=== PATIENT | male | born 1955 | race Hispanic/Latino ===

== ENCOUNTER 2018-12-08 05:30 | Day surgery (SDC) | payer MEDICARE, OTHER ==
[2018-12-05 11:39] VITALS: BP 180/77
[2018-12-05 11:40] LABS: BASOPHILS % (AUTO) 1.3 % (0.0-5.0); EOSINOPHILS % (AUTO) 6.7 % (0.0-8.0); HEMATOCRIT 31.3 % (42-54); LYMPHOCYTES % (AUTO) 23.6 % (21.0-51.0); MEAN CORPUSCULAR HGB CONC 34.6 g/dL (32.0-36.0); MEAN CORPUSCULAR VOLUME 95.4 fL (79-99); MONOCYTES % (AUTO) 11.4 % (3.0-13.0); PLATELET COUNT (AUTO) 177 K/uL (130-400); RED BLOOD CELL COUNT(AUTO) 3.28 MIL/uL (4.50-6.20); RED CELL DISTRIBUTION WIDTH 14.6 % (11.0-15.5); WHITE BLOOD COUNT (AUTO) 4.9 K/uL (4.8-10.8)
[2018-12-05 11:48] LABS: CREATININE 6.5 mg/dL (0.5-1.5); POTASSIUM 5.1 mmol/L (3.5-5.1)
[2018-12-05 11:55] LABS: INR 0.94 (0.85-1.15); PARTIAL THROMBOPLASTIN TIME 29.8 SEC (26.3-35.5); PROTHROMBIN TIME 9.9 SEC (9.6-11.6)
[~2018-12-08] VITALS: Ht 172.7 cm; Wt 74.1 kg
[2018-12-08] VITALS (10 sets, daily range): BP systolic 131–156; BP diastolic 51–74
[~2018-12-08 05:30] MED LIST: AMLO10TA7 PO; ASPI81TA40 PO; CALC667C10 PO; FAMO40TA7 PO; FOLI1TAB85 PO; GLIP10TA9 PO; LOSA100T58 PO; PRAV80TA21 PO; SEVE800T27 PO
[2018-12-08] MEDS ORDERED: IOHEXOL-350 75 ML VIAL IV ONE (07:07)
[2018-12-08] MEDS ORDERED: IOHEXOL-350 50ML VIAL IV ONE (07:07)
[2018-12-08] MEDS ORDERED: LIDOCAINE HCL 2% 20ML ONE (07:07)
[2018-12-08] MEDS ORDERED: INSU100I21 SQ (07:09)
[2018-12-08] MEDS ORDERED: SODIUM CHLORIDE 0.9% 1000ML 1,000 ML IV ONE (07:15)
[2018-12-08] MEDS ORDERED: HYDRALAZINE HCL 20 MG/ML VIAL ONE ×2 (07:49→07:56)
[2018-12-08] MEDS ORDERED: GLUCAGON 1MG KIT 1 MG ML IM PRN (08:15)
[2018-12-08] MEDS ORDERED: DEXTROSE 50%-WATER 50 ML DISP.SYRIN IV PRN (08:15)
== END 2018-12-08 12:30 | disposition home or self-care (01) ==
LOC: DAH 05:30
PROVIDERS: ATTEND Internal Medicine Cardiovascular Disease
DX: I25.10 Atherosclerotic heart disease of native coronary artery without angina pectoris (principal); I44.30 Unspecified atrioventricular block; I12.9 Hypertensive chronic kidney disease with stage 1 through stage 4 chronic kidney disease, or unspecified chronic kidney disease; E11.22 Type 2 diabetes mellitus with diabetic chronic kidney disease; Z99.2 Dependence on renal dialysis; E78.5 Hyperlipidemia, unspecified; I73.9 Peripheral vascular disease, unspecified; Z79.899 Other long term (current) drug therapy; I12.0 Hypertensive chronic kidney disease with stage 5 chronic kidney disease or end stage renal disease; N18.6 End stage renal disease; E11.51 Type 2 diabetes mellitus with diabetic peripheral angiopathy without gangrene; E11.21 Type 2 diabetes mellitus with diabetic nephropathy; Z98.890 Other specified postprocedural states; Z79.01 Long term (current) use of anticoagulants; R07.9 Chest pain, unspecified
CPT/HCPCS: 71045; 75625; 80048; 82948; 85025; 85610; 85730; 93005; 93458; A4606; C1760; C1894; J0360 ×2; J1644; J3490; J7030; Q9967 ×2; 75630

== ENCOUNTER → 2020-08-10 | Outpatient (CLI) | payer MEDICARE ==
[~2020-08-10] VITALS: Ht 172.7 cm; Wt 68.8 kg
[~2020-08-10] MED LIST changes: +AMLO-258 PO; -AMLO10TA7 PO; +INSU100I21 SQ; +MONT10TA96 PO; +PRAV40TA3 PO
[2020-08-10 11:58] LABS: BASOPHILS % (AUTO) 0.6 % (0.0-5.0); EOSINOPHILS % (AUTO) 4.3 % (0.0-8.0); HEMATOCRIT 34.2 % (42-54); LYMPHOCYTES % (AUTO) 20.9 % (21.0-51.0); MEAN CORPUSCULAR HEMOGLOBIN 30.4 pg (27.0-33.0); MEAN CORPUSCULAR HGB CONC 32.5 g/dL (32.0-36.0); MEAN CORPUSCULAR VOLUME 93.7 fL (79-99); MONOCYTES % (AUTO) 7.6 % (3.0-13.0); NEUTROPHILS % (AUTO) 66.2 % (40.0-77.0); PLATELET COUNT (AUTO) 130 K/uL (130-400); RED BLOOD CELL COUNT(AUTO) 3.65 MIL/uL (4.50-6.20); RED CELL DISTRIBUTION WIDTH 13.2 % (11.0-15.5); WHITE BLOOD COUNT (AUTO) 4.9 K/uL (4.8-10.8)
[2020-08-10 12:06] LABS: CREATININE 4.6 mg/dL (0.5-1.5); POTASSIUM 3.9 mmol/L (3.5-5.1)
[2020-08-10 12:23] LABS: INR 0.97 (0.85-1.15); PROTHROMBIN TIME 10.4 SEC (9.6-11.6)
[2020-08-15 09:51] VITALS: BP 139/53
== END | disposition home or self-care (01) ==
LOC: EDSTATUS 09:00 → DAH 10:00
PROVIDERS: ATTEND Internal Medicine Cardiovascular Disease
DX: Z01.810 Encounter for preprocedural cardiovascular examination (principal); I44.1 Atrioventricular block, second degree; I25.10 Atherosclerotic heart disease of native coronary artery without angina pectoris; I12.0 Hypertensive chronic kidney disease with stage 5 chronic kidney disease or end stage renal disease; N18.6 End stage renal disease
CPT/HCPCS: 36415; 80048; 85025; 85610; 85730

== ENCOUNTER 2020-08-17 08:37 | Inpatient (IN) | payer MEDICARE ==
[~2020-08-17 08:37] MED LIST changes: -AMLO-258 PO; -FAMO40TA7 PO; -FOLI1TAB85 PO; +MONT-39 PO; -MONT10TA96 PO; -PRAV80TA21 PO
[2020-08-17] MEDS ORDERED: ACETAMINOPHEN 500 MG TABLET ONE (08:50)
[2020-08-17 08:59] LABS: BASOPHILS % (AUTO) 0.1 % (0.0-5.0); EOSINOPHILS % (AUTO) 1.5 % (0.0-8.0); HEMATOCRIT 29.7 % (42-54); LYMPHOCYTES % (AUTO) 5.3 % (21.0-51.0); MEAN CORPUSCULAR HEMOGLOBIN 30.1 pg (27.0-33.0); MEAN CORPUSCULAR VOLUME 88.4 fL (79-99); MONOCYTES % (AUTO) 3.2 % (3.0-13.0); NEUTROPHILS % (AUTO) 89.5 % (40.0-77.0); PLATELET COUNT (AUTO) 103 K/uL (130-400); RED BLOOD CELL COUNT(AUTO) 3.36 MIL/uL (4.50-6.20); RED CELL DISTRIBUTION WIDTH 13.3 % (11.0-15.5); WHITE BLOOD COUNT (AUTO) 9.2 K/uL (4.8-10.8)
[2020-08-17 09:12] LABS: CREATININE 5.9 mg/dL (0.5-1.5); POTASSIUM 3.7 mmol/L (3.5-5.1)
[2020-08-17 09:15] LABS: INR 1.07 (0.85-1.15); PROTHROMBIN TIME 11.4 SEC (9.6-11.6)
[2020-08-17 09:16] LABS: PARTIAL THROMBOPLASTIN TIME 45.6 SEC (26.3-35.5)
[2020-08-17 09:27] LABS: ALBUMIN 2.9 g/dL (3.5-5.0); BILIRUBIN,TOTAL 0.7 mg/dL (0.2-1.0); TOTAL PROTEIN, SERUM 7.2 g/dL (6.0-8.3)
[2020-08-17] MEDS ORDERED: ALBUTEROL INHALER 90MCG/INH IH ONE (09:33)
[2020-08-17] MEDS ORDERED: ENOXAPARIN SODIUM 60 MG/0.6 ML SQ ONE (09:34)
[2020-08-17] MEDS ORDERED: AZITHROMYCIN 500MG+NS 250ML 250 ML IV ONE (09:35)
[2020-08-17] MEDS ORDERED: DEXAMETHASONE SOD PHOSPHATE 10MG/ML 1ML VIAL ONE (09:35)
[2020-08-17] MEDS: PHARMACY COMMUNICATION MISC SCH ×2 (14:15→21:00)
[2020-08-17] MEDS ORDERED: HEPARIN 5,000 UNIT VIAL ONE (14:59)
[2020-08-17] MEDS ORDERED: PHARMACY COMMUNICATION MISC SCH (22:15)
[2020-08-17] MEDS ORDERED: ASPIRIN 81MG CHEW TAB ONE (23:40)
[2020-08-18] MEDS ORDERED: INSULIN HUMULIN R 100 UNIT/ML 3ML ONE (02:18)
[2020-08-18 02:40] VITALS: BP 150/77
[2020-08-18 03:40] VITALS: BP 106/66
[2020-08-18 06:14] LABS: BASOPHILS % (AUTO) 0.1 % (0.0-5.0); HEMATOCRIT 35.5 % (42-54); LYMPHOCYTES % (AUTO) 6.1 % (21.0-51.0); MEAN CORPUSCULAR HEMOGLOBIN 29.9 pg (27.0-33.0); MEAN CORPUSCULAR HGB CONC 33.2 g/dL (32.0-36.0); MEAN CORPUSCULAR VOLUME 89.9 fL (79-99); MONOCYTES % (AUTO) 3.8 % (3.0-13.0); NEUTROPHILS % (AUTO) 89.7 % (40.0-77.0); PLATELET COUNT (AUTO) 135 K/uL (130-400); RED BLOOD CELL COUNT(AUTO) 3.95 MIL/uL (4.50-6.20); RED CELL DISTRIBUTION WIDTH 13.3 % (11.0-15.5); WHITE BLOOD COUNT (AUTO) 9.1 K/uL (4.8-10.8)
[2020-08-18 06:24] LABS: ALBUMIN 2.5 g/dL (3.5-5.0); BILIRUBIN,TOTAL 0.5 mg/dL (0.2-1.0); CREATININE 5.8 mg/dL (0.5-1.5); POTASSIUM 3.3 mmol/L (3.5-5.1); TOTAL PROTEIN, SERUM 7.3 g/dL (6.0-8.3)
[2020-08-18] MEDS: INSULIN HUMULIN R 100 UNIT/ML 3ML SQ SCH ×4 (06:46→21:55)
[2020-08-18] MEDS: HEPARIN 5,000 UNIT VIAL SQ SCH ×3 (06:58→22:16)
[2020-08-18 07:13] LABS: CRP QUANTITATIVE 390.6 mg/L (0.00-9.0)
[2020-08-18 08:58] VITALS: BP 151/76
[2020-08-18] MEDS: ASPIRIN 81MG CHEW TAB PO SCH (09:00)
[2020-08-18] MEDS: DEXAMETHASONE SOD PHOSPHATE 4 MG/ML 1ML VIAL IVP SCH (09:02)
[2020-08-18 12:04] VITALS: BP 154/66
[2020-08-18 16:00] VITALS: BP 144/77
[2020-08-18] MEDS ORDERED: ERGOCALCIFEROL (VITAMIN D2) 50,000 UNIT CAPSULE PO ONE (17:30)
[2020-08-18] MEDS ORDERED: PHARMACY COMMUNICATION MISC SCH (17:30)
[2020-08-18 20:00] VITALS: BP_SYST 137; BP_SYST 144; BP_DIAS 77; BP_DIAS 80
[2020-08-18] MEDS ORDERED: COMPOUND IV REFRIGERATED 1 EACH MISC ONE (20:08)
[2020-08-18] MEDS: PHARMACY COMMUNICATION MISC SCH (22:15)
[2020-08-19] VITALS (7 sets, daily range): BP systolic 114–160; BP diastolic 56–77
[2020-08-19 05:38] LABS: BASOPHILS % (AUTO) 0.1 % (0.0-5.0); HEMATOCRIT 33.8 % (42-54); LYMPHOCYTES % (AUTO) 4.6 % (21.0-51.0); MEAN CORPUSCULAR HEMOGLOBIN 30.1 pg (27.0-33.0); MEAN CORPUSCULAR HGB CONC 33.7 g/dL (32.0-36.0); MEAN CORPUSCULAR VOLUME 89.2 fL (79-99); MONOCYTES % (AUTO) 2.4 % (3.0-13.0); NEUTROPHILS % (AUTO) 92.3 % (40.0-77.0); PLATELET COUNT (AUTO) 210 K/uL (130-400); RED BLOOD CELL COUNT(AUTO) 3.79 MIL/uL (4.50-6.20); RED CELL DISTRIBUTION WIDTH 13.7 % (11.0-15.5); WHITE BLOOD COUNT (AUTO) 12.7 K/uL (4.8-10.8)
[2020-08-19 05:50] LABS: ALBUMIN 2.5 g/dL (3.5-5.0); BILIRUBIN,TOTAL 0.5 mg/dL (0.2-1.0); CREATININE 7.6 mg/dL (0.5-1.5); POTASSIUM 3.7 mmol/L (3.5-5.1); TOTAL PROTEIN, SERUM 7.1 g/dL (6.0-8.3)
[2020-08-19] MEDS: HEPARIN 5,000 UNIT VIAL SQ SCH ×3 (06:16→21:04)
[2020-08-19] MEDS: PHARMACY COMMUNICATION MISC SCH (06:17)
[2020-08-19] MEDS: INSULIN HUMULIN R 100 UNIT/ML 3ML SQ SCH ×4 (07:30→21:03)
[2020-08-19] MEDS ORDERED: VANCOMYCIN PROTOCOL PER PHARMACY IV PRN (08:45)
[2020-08-19] MEDS ORDERED: VANCOMYCIN 1G/250ML KIT 250 ML IV SCH (08:45)
[2020-08-19] MEDS ORDERED: ACETAMINOPHEN 325 MG TAB PO PRN (08:45)
[2020-08-19] MEDS: ZINC SULFATE 220 CAPSULE PO SCH (08:53)
[2020-08-19] MEDS: ASCORBIC ACID 500 MG TAB PO SCH (08:54)
[2020-08-19] MEDS: ASPIRIN 81MG CHEW TAB PO SCH (08:54)
[2020-08-19] MEDS: AMLODIPINE 5 MG TAB PO SCH (09:44)
[2020-08-19] MEDS: ZOSYN 3.375GM+NS 50ML 50 ML IV SCH ×2 (09:44→21:04)
[2020-08-19] MEDS: METOPROLOL TARTRATE 25 MG TAB PO SCH ×2 (09:44→21:04)
[2020-08-19] MEDS: DEXAMETHASONE SOD PHOSPHATE 4 MG/ML 1ML VIAL IVP SCH (10:29)
[2020-08-19] MEDS: DOXYCYCLINE HYCLATE 100 MG TABLET PO SCH ×2 (14:59→21:04)
[2020-08-19] MEDS: ATORVASTATIN 20 MG TABLET PO SCH (21:04)
[2020-08-19] MEDS: INSULIN GLARGINE 100 UNITS/ML 10 ML VIAL SQ SCH (21:05)
[2020-08-20 03:43] VITALS: BP 136/60
[2020-08-20 04:44] LABS: ABG BASE EXCESS -3.3 mmol/L (-2.0-3.0); ABG HCO3 19.6 mmol/L (21.0-28.0); ABG OXYGEN SATURATION 85.7 % (95.0-99.0); ABG PCO2 30 mmHg (35-48)
[2020-08-20 04:53] LABS: BASOPHILS % (AUTO) 0.1 % (0.0-5.0); EOSINOPHILS % (AUTO) 1.7 % (0.0-8.0); HEMATOCRIT 30.2 % (42-54); LYMPHOCYTES % (AUTO) 4.2 % (21.0-51.0); MEAN CORPUSCULAR HEMOGLOBIN 30.1 pg (27.0-33.0); MEAN CORPUSCULAR HGB CONC 34.1 g/dL (32.0-36.0); MEAN CORPUSCULAR VOLUME 88.3 fL (79-99); MONOCYTES % (AUTO) 3.5 % (3.0-13.0); NEUTROPHILS % (AUTO) 90.1 % (40.0-77.0); PLATELET COUNT (AUTO) 190 K/uL (130-400); RED BLOOD CELL COUNT(AUTO) 3.42 MIL/uL (4.50-6.20); RED CELL DISTRIBUTION WIDTH 13.5 % (11.0-15.5); WHITE BLOOD COUNT (AUTO) 9.4 K/uL (4.8-10.8)
[2020-08-20 05:10] LABS: ALBUMIN 2.4 g/dL (3.5-5.0); BILIRUBIN,TOTAL 0.5 mg/dL (0.2-1.0); CRP QUANTITATIVE 164.9 mg/L (0.00-9.0); POTASSIUM 3.5 mmol/L (3.5-5.1); TOTAL PROTEIN, SERUM 6.6 g/dL (6.0-8.3)
[2020-08-20 06:01] LABS: CREATININE 9.3 mg/dL (0.5-1.5)
[2020-08-20] MEDS: HEPARIN 5,000 UNIT VIAL SQ SCH ×3 (06:19→20:29)
[2020-08-20] MEDS: INSULIN HUMULIN R 100 UNIT/ML 3ML SQ SCH ×8 (06:21→20:29)
[2020-08-20 07:43] VITALS: BP 127/67
[2020-08-20] MEDS: ASCORBIC ACID 500 MG TAB PO SCH (09:38)
[2020-08-20] MEDS: METOPROLOL TARTRATE 25 MG TAB PO SCH ×2 (09:38→19:50)
[2020-08-20] MEDS: ZINC SULFATE 220 CAPSULE PO SCH (09:38)
[2020-08-20] MEDS: ASPIRIN 81MG CHEW TAB PO SCH (09:38)
[2020-08-20] MEDS: DEXAMETHASONE SOD PHOSPHATE 4 MG/ML 1ML VIAL IVP SCH (09:39)
[2020-08-20] MEDS: DOXYCYCLINE HYCLATE 100 MG TABLET PO SCH ×2 (09:39→20:28)
[2020-08-20] MEDS: ZOSYN 3.375GM+NS 50ML 50 ML IV SCH ×2 (09:40→20:28)
[2020-08-20] MEDS: AMLODIPINE 5 MG TAB PO SCH (09:40)
[2020-08-20 11:25] VITALS: BP 112/56
[2020-08-20 15:12] VITALS: BP 131/81
[2020-08-20 17:46] LABS: BASOPHILS % (AUTO) 0.1 % (0.0-5.0); HEMATOCRIT 30.6 % (42-54); LYMPHOCYTES % (AUTO) 4.1 % (21.0-51.0); MEAN CORPUSCULAR HEMOGLOBIN 30.4 pg (27.0-33.0); MEAN CORPUSCULAR HGB CONC 34.6 g/dL (32.0-36.0); MEAN CORPUSCULAR VOLUME 87.7 fL (79-99); MONOCYTES % (AUTO) 3.1 % (3.0-13.0); NEUTROPHILS % (AUTO) 92.3 % (40.0-77.0); PLATELET COUNT (AUTO) 160 K/uL (130-400); RED BLOOD CELL COUNT(AUTO) 3.49 MIL/uL (4.50-6.20); RED CELL DISTRIBUTION WIDTH 13.3 % (11.0-15.5); WHITE BLOOD COUNT (AUTO) 11.1 K/uL (4.8-10.8)
[2020-08-20 19:00] VITALS: BP 107/76
[2020-08-20] MEDS: INSULIN GLARGINE 100 UNITS/ML 10 ML VIAL SQ SCH (20:26)
[2020-08-20] MEDS: ATORVASTATIN 20 MG TABLET PO SCH (20:27)
[2020-08-20 23:00] VITALS: BP 103/64
[2020-08-21 03:00] VITALS: BP 133/65
[2020-08-21 05:15] LABS: BASOPHILS % (AUTO) 0.1 % (0.0-5.0); HEMATOCRIT 30.7 % (42-54); LYMPHOCYTES % (AUTO) 7.1 % (21.0-51.0); MEAN CORPUSCULAR HEMOGLOBIN 29.8 pg (27.0-33.0); MEAN CORPUSCULAR HGB CONC 33.6 g/dL (32.0-36.0); MEAN CORPUSCULAR VOLUME 88.7 fL (79-99); MONOCYTES % (AUTO) 5.5 % (3.0-13.0); NEUTROPHILS % (AUTO) 86.5 % (40.0-77.0); PLATELET COUNT (AUTO) 171 K/uL (130-400); RED BLOOD CELL COUNT(AUTO) 3.46 MIL/uL (4.50-6.20); RED CELL DISTRIBUTION WIDTH 13.3 % (11.0-15.5)
[2020-08-21 05:49] LABS: ALBUMIN 2.2 g/dL (3.5-5.0); BILIRUBIN,TOTAL 0.5 mg/dL (0.2-1.0); CREATININE 7.1 mg/dL (0.5-1.5); POTASSIUM 3.3 mmol/L (3.5-5.1); TOTAL PROTEIN, SERUM 6.6 g/dL (6.0-8.3)
[2020-08-21] MEDS: HEPARIN 5,000 UNIT VIAL SQ SCH ×3 (05:54→23:38)
[2020-08-21] MEDS: INSULIN HUMULIN R 100 UNIT/ML 3ML SQ SCH ×7 (06:00→23:40)
[2020-08-21 08:00] VITALS: BP 132/70
[2020-08-21] MEDS: DOXYCYCLINE HYCLATE 100 MG TABLET PO SCH ×2 (08:11→23:34)
[2020-08-21] MEDS: ZINC SULFATE 220 CAPSULE PO SCH (08:11)
[2020-08-21] MEDS: METOPROLOL TARTRATE 25 MG TAB PO SCH ×2 (08:11→23:34)
[2020-08-21] MEDS: ASPIRIN 81MG CHEW TAB PO SCH (08:12)
[2020-08-21] MEDS: AMLODIPINE 5 MG TAB PO SCH (08:12)
[2020-08-21] MEDS: DEXAMETHASONE SOD PHOSPHATE 4 MG/ML 1ML VIAL IVP SCH (08:12)
[2020-08-21] MEDS: ASCORBIC ACID 500 MG TAB PO SCH (08:12)
[2020-08-21] MEDS: ZOSYN 3.375GM+NS 50ML 50 ML IV SCH ×2 (09:25→23:34)
[2020-08-21] MEDS ORDERED: LOPERAMIDE HCL 2 MG CAP PO PRN (10:30)
[2020-08-21] MEDS ORDERED: LOPERAMIDE HCL 2 MG CAP PO SCH (10:30)
[2020-08-21 12:00] VITALS: BP 113/82
[2020-08-21 16:00] VITALS: BP 120/66
[2020-08-21 20:16] VITALS: BP 138/88
[2020-08-21] MEDS: ATORVASTATIN 20 MG TABLET PO SCH (23:34)
[2020-08-21] MEDS: INSULIN GLARGINE 100 UNITS/ML 10 ML VIAL SQ SCH (23:39)
[2020-08-22 00:16] VITALS: BP 119/72
[2020-08-22 04:16] VITALS: BP 120/62
[2020-08-22 05:30] LABS: BASOPHILS % (AUTO) 0.1 % (0.0-5.0); HEMATOCRIT 35.5 % (42-54); LYMPHOCYTES % (AUTO) 5.4 % (21.0-51.0); MEAN CORPUSCULAR HGB CONC 33.5 g/dL (32.0-36.0); MEAN CORPUSCULAR VOLUME 89.4 fL (79-99); MONOCYTES % (AUTO) 4.5 % (3.0-13.0); NEUTROPHILS % (AUTO) 89.6 % (40.0-77.0); PLATELET COUNT (AUTO) 241 K/uL (130-400); RED BLOOD CELL COUNT(AUTO) 3.97 MIL/uL (4.50-6.20); RED CELL DISTRIBUTION WIDTH 13.2 % (11.0-15.5); WHITE BLOOD COUNT (AUTO) 13.5 K/uL (4.8-10.8)
[2020-08-22] MEDS: HEPARIN 5,000 UNIT VIAL SQ SCH ×2 (06:34→15:58)
[2020-08-22] MEDS: INSULIN HUMULIN R 100 UNIT/ML 3ML SQ SCH ×3 (06:36→17:09)
[2020-08-22 07:00] VITALS: BP 144/77
[2020-08-22] MEDS: ZOSYN 3.375GM+NS 50ML 50 ML IV SCH (08:32)
[2020-08-22] MEDS: ZINC SULFATE 220 CAPSULE PO SCH (08:35)
[2020-08-22] MEDS: DOXYCYCLINE HYCLATE 100 MG TABLET PO SCH (08:35)
[2020-08-22] MEDS: AMLODIPINE 5 MG TAB PO SCH (08:35)
[2020-08-22] MEDS: DEXAMETHASONE SOD PHOSPHATE 4 MG/ML 1ML VIAL IVP SCH (08:35)
[2020-08-22] MEDS: METOPROLOL TARTRATE 25 MG TAB PO SCH (08:35)
[2020-08-22] MEDS: ASCORBIC ACID 500 MG TAB PO SCH (08:35)
[2020-08-22] MEDS: ASPIRIN 81MG CHEW TAB PO SCH (08:36)
[2020-08-22 11:00] VITALS: BP 138/85
[2020-08-22 15:00] VITALS: BP 124/76
[2020-10-11] MEDS ORDERED: GLIP10TA9 PO (10:56)
[2020-10-11] MEDS ORDERED: METO-408 PO (10:56)
[2020-10-11] MEDS ORDERED: FAMO40TA7 PO (10:56)
[2020-10-11] MEDS ORDERED: AMOX500C2 PO (10:56)
[2020-10-11] MEDS ORDERED: PRAV80TA21 PO (10:56)
[2020-10-11] MEDS ORDERED: CLAR-44 PO (10:56)
[2020-10-11] MEDS ORDERED: OMEP20TA25 PO (10:56)
[2020-10-11] MEDS ORDERED: LEVO150C4 PO (10:57)
[2020-10-11] MEDS ORDERED: INSU100I21 SQ (10:57)
[2020-10-11] MEDS ORDERED: FOLI0.8T2 PO (10:57)
[2021-02-26] MEDS ORDERED: METO50TA18 PO (16:44)
[2021-02-26] MEDS ORDERED: DIPH1TAB24 PO (16:49)
[2021-02-26] MEDS ORDERED: MONT-39 PO (16:50)
[2021-02-26] MEDS ORDERED: AMLO-257 PO (16:57)
[2021-03-01] MEDS ORDERED: AMLO-258 PO (14:49)
== END 2020-08-22 18:30 | DRG 177 ==
LOC: EDH 08:37 → EDHIP 11:44 → 2AH 08-18 00:47
PROVIDERS: ADMIT Internal Medicine; ATTEND Internal Medicine
PROC: 5A1D70Z Performance of Urinary Filtration, Intermittent, Less than 6 Hours Per Day (ICD-10-PCS; 2020-08-17)
PROC: XW13325 Transfusion of Convalescent Plasma (Nonautologous) into Peripheral Vein, Percutaneous Approach, New Technology Group 5 (ICD-10-PCS; principal; 2020-08-19)
PROC: 5A1D70Z Performance of Urinary Filtration, Intermittent, Less than 6 Hours Per Day (ICD-10-PCS; 2020-08-20)
DX: U07.1 COVID-19 (principal); J15.6 Pneumonia due to other Gram-negative bacteria; N18.6 End stage renal disease; J96.01 Acute respiratory failure with hypoxia; J12.82 Pneumonia due to coronavirus disease 2019; J44.0 Chronic obstructive pulmonary disease with (acute) lower respiratory infection; I12.0 Hypertensive chronic kidney disease with stage 5 chronic kidney disease or end stage renal disease; I24.8 Other forms of acute ischemic heart disease; E78.5 Hyperlipidemia, unspecified; I70.0 Atherosclerosis of aorta; I25.10 Atherosclerotic heart disease of native coronary artery without angina pectoris; R53.81 Other malaise; E11.22 Type 2 diabetes mellitus with diabetic chronic kidney disease; Z99.2 Dependence on renal dialysis; Z87.891 Personal history of nicotine dependence; Z83.3 Family history of diabetes mellitus; Z82.49 Family history of ischemic heart disease and other diseases of the circulatory system
CPT/HCPCS: 36415; 36430; 36600; 71045; 80053; 82270; 82550; 82728; 82803; 82948; 83605; 83615; 84145; 84484; 85025; 85378; 85610; 85730; 86140; 86850; 86900; 86901; 86927; 87040; 87046; 87324; 87426; 87493; 87804; 90935; 93005; G0378; J0456; J1100; J1644; J1650; J1815; J2543; J3370

== ENCOUNTER → 2020-10-10 | Outpatient (CLI) | payer MEDICARE ==
[~2020-10-10] VITALS: Ht 172.7 cm; Wt 68.0 kg
[~2020-10-10] MED LIST changes: +AMOX500C2 PO; +CEFAZOLIN SODIUM 1 GM VIAL IVP SCH; +CLAR-44 PO; +FAMO40TA7 PO; +FOLI0.8T2 PO; +LEVO150C4 PO; +METO-408 PO; -MONT-39 PO; +MONT10TA32 PO; +OMEP20TA25 PO; +PRAV80TA21 PO
[2020-10-10 11:08] LABS: BASOPHILS % (AUTO) 1.3 % (0.0-5.0); LYMPHOCYTES % (AUTO) 15.7 % (21.0-51.0); MEAN CORPUSCULAR HGB CONC 32.8 g/dL (32.0-36.0); MEAN CORPUSCULAR VOLUME 94.8 fL (79-99); MONOCYTES % (AUTO) 6.9 % (3.0-13.0); NEUTROPHILS % (AUTO) 67.8 % (40.0-77.0); PLATELET COUNT (AUTO) 209 K/uL (130-400); RED BLOOD CELL COUNT(AUTO) 3.06 MIL/uL (4.50-6.20); RED CELL DISTRIBUTION WIDTH 15.5 % (11.0-15.5); WHITE BLOOD COUNT (AUTO) 6.4 K/uL (4.8-10.8)
[2020-10-10 11:16] LABS: CREATININE 7.2 mg/dL (0.5-1.5); POTASSIUM 4.9 mmol/L (3.5-5.1)
[2020-10-10 12:30] LABS: PROTHROMBIN TIME 10.9 SEC (9.6-11.6)
[2020-10-10 12:31] LABS: PARTIAL THROMBOPLASTIN TIME 30.4 SEC (26.3-35.5)
[2020-10-11 09:21] VITALS: BP 177/62
== END ==
LOC: EDSTATUS 10:00 → DAH 10:00
PROVIDERS: ATTEND Internal Medicine Cardiovascular Disease
DX: Z01.818 Encounter for other preprocedural examination (principal); I44.1 Atrioventricular block, second degree; Z79.01 Long term (current) use of anticoagulants
CPT/HCPCS: 36415; 80048; 85025; 85610; 85730

== ENCOUNTER 2020-11-07 05:43 | Observation (INO) | payer MEDICARE ==
[2020-11-03 14:25] LABS: BASOPHILS % (AUTO) 1.1 % (0.0-5.0); HEMATOCRIT 29.3 % (42-54); LYMPHOCYTES % (AUTO) 14.9 % (21.0-51.0); MEAN CORPUSCULAR HEMOGLOBIN 31.3 pg (27.0-33.0); MEAN CORPUSCULAR HGB CONC 33.4 g/dL (32.0-36.0); MEAN CORPUSCULAR VOLUME 93.6 fL (79-99); MONOCYTES % (AUTO) 7.9 % (3.0-13.0); NEUTROPHILS % (AUTO) 71.8 % (40.0-77.0); PLATELET COUNT (AUTO) 182 K/uL (130-400); RED BLOOD CELL COUNT(AUTO) 3.13 MIL/uL (4.50-6.20); RED CELL DISTRIBUTION WIDTH 16.6 % (11.0-15.5); WHITE BLOOD COUNT (AUTO) 6.3 K/uL (4.8-10.8)
[2020-11-03 14:41] LABS: INR 1.05 (0.85-1.15); POTASSIUM 4.7 mmol/L (3.5-5.1); PROTHROMBIN TIME 11.4 SEC (9.6-11.6)
[2020-11-04 10:42] VITALS: BP 157/58
[2020-11-07] VITALS (11 sets, daily range): BP systolic 96–143; BP diastolic 36–63
[~2020-11-07] VITALS: Ht 167.6 cm; Wt 71.6 kg
[~2020-11-07 05:43] MED LIST changes: -AMOX500C2 PO; -CALC667C10 PO; -CEFAZOLIN SODIUM 1 GM VIAL IVP SCH; -CLAR-44 PO; -OMEP20TA25 PO; -PRAV40TA3 PO; +SODIUM CHLORIDE 0.9% 500ML 500 ML IV SCH
[2020-11-07] MEDS ORDERED: CEFAZOLIN SODIUM 1 GM VIAL IVP SCH (06:00)
[2020-11-07] MEDS ORDERED: BUPIVACAINE/PF 0.25% 30ML VIAL IJ ONE (08:27)
[2020-11-07] MEDS ORDERED: CEFAZOLIN SODIUM 1 GM VIAL ONE (08:28)
[2020-11-07] MEDS ORDERED: MIDAZOLAM HCL 1 MG/ML 2ML VIAL ONE ×3 (08:28→10:13)
[2020-11-07] MEDS ORDERED: LIDOCAINE HCL 1% MDV 50ML VIAL ONE (08:28)
[2020-11-07] MEDS ORDERED: FENTANYL CITRATE PF 50 MCG/1 ML 2ML VIAL ONE (08:28)
[2020-11-07] MEDS ORDERED: MEPERIDINE-PF 25 MG/ML SYG ONE ×4 (09:01→10:52)
[2020-11-07] MEDS ORDERED: INSULIN HUMULIN R 100 UNIT/ML 3ML SQ ONE (09:10)
[2020-11-07] MEDS ORDERED: IODIXANOL 320 MG/ML 100 ML VIAL ONE (09:19)
[2020-11-07] MEDS ORDERED: THROMBIN-JMI 5000 UNIT/VIAL TP ONE (11:11)
[2020-11-07] MEDS ORDERED: HYDRALAZINE HCL 20 MG/ML VIAL ONE (11:24)
[2020-11-07] MEDS ORDERED: PHARMACY COMMUNICATION MISC SCH (11:45)
[2020-11-07] MEDS ORDERED: DESMOPRESSIN ACETATE 4 MCG/ML 20 MCG in SODIUM CHLORIDE 0.9% 50 ML IJ ONE (12:00)
[2020-11-07 13:57] LABS: HEMATOCRIT 26.9 % (42-54); MEAN CORPUSCULAR HEMOGLOBIN 31.8 pg (27.0-33.0); MEAN CORPUSCULAR HGB CONC 33.1 g/dL (32.0-36.0); MEAN CORPUSCULAR VOLUME 96.1 fL (79-99); RED BLOOD CELL COUNT(AUTO) 2.8 MIL/uL (4.50-6.20); RED CELL DISTRIBUTION WIDTH 16.6 % (11.0-15.5); WHITE BLOOD COUNT (AUTO) 18.9 K/uL (4.8-10.8)
[2020-11-07] MEDS: SEVELAMER HCL 800 MG TABLET PO SCH ×2 (14:09→20:44)
[2020-11-07] MEDS: GLIPIZIDE 5 MG TABLET PO SCH (16:30)
[2020-11-07] MEDS ORDERED: GLUCAGON 1MG KIT 1 MG ML IM PRN (17:30)
[2020-11-07] MEDS ORDERED: DEXTROSE 50%-WATER 50 ML DISP.SYRIN IV PRN (17:30)
[2020-11-07] MEDS ORDERED: DEXTROSE 50%-WATER 50 ML DISP.SYRIN IV ONE (17:39)
[2020-11-07] MEDS ORDERED: HYDROMORPHONE HCL 0.5 MG/0.5 ML ML ONE (20:09)
[2020-11-07] MEDS ORDERED: HYDROMORPHONE HCL 0.5 MG/0.5 ML ML IVP PRN (20:15)
[2020-11-07] MEDS ORDERED: NON-FORMULARY MEDICATION 1 EACH (Metoprolol Succinate 25 MG) PO SCH (21:00)
[2020-11-07] MEDS ORDERED: INSULIN GLARGINE 100 UNITS/ML 10 ML VIAL SQ SCH (21:00)
[2020-11-07] MEDS ORDERED: SIMVASTATIN 20 MG TABLET PO SCH (21:00)
[2020-11-07] MEDS ORDERED: NON-FORMULARY MEDICATION 1 EACH (Glipizide 10 MG) PO SCH (21:00)
[2020-11-07] MEDS ORDERED: LOSARTAN 100 MG TABLET PO SCH (21:00)
[2020-11-07] MEDS ORDERED: ASPIRIN 81 MG EC TAB PO SCH (21:00)
[2020-11-07] MEDS ORDERED: INSULIN DETEMIR 15 UNIT SQ SCH (21:00)
[2020-11-07] MEDS ORDERED: NON-FORMULARY MEDICATION 1 EACH (Pravastatin Sodium 80 MG) PO SCH (21:00)
[2020-11-08 03:30] VITALS: BP 152/78
[2020-11-08 05:39] LABS: BASOPHILS % (AUTO) 0.4 % (0.0-5.0); EOSINOPHILS % (AUTO) 1.3 % (0.0-8.0); HEMATOCRIT 22.7 % (42-54); LYMPHOCYTES % (AUTO) 8.5 % (21.0-51.0); MEAN CORPUSCULAR HEMOGLOBIN 31.3 pg (27.0-33.0); MEAN CORPUSCULAR HGB CONC 33.5 g/dL (32.0-36.0); MEAN CORPUSCULAR VOLUME 93.4 fL (79-99); MONOCYTES % (AUTO) 7.7 % (3.0-13.0); NEUTROPHILS % (AUTO) 81.8 % (40.0-77.0); PLATELET COUNT (AUTO) 177 K/uL (130-400); RED BLOOD CELL COUNT(AUTO) 2.43 MIL/uL (4.50-6.20); RED CELL DISTRIBUTION WIDTH 16.6 % (11.0-15.5); WHITE BLOOD COUNT (AUTO) 7.6 K/uL (4.8-10.8)
[2020-11-08] MEDS: GLIPIZIDE 5 MG TABLET PO SCH ×2 (05:53→14:38)
[2020-11-08 05:59] LABS: POTASSIUM 5.9 mmol/L (3.5-5.1)
[2020-11-08 06:01] LABS: CREATININE 8.6 mg/dL (0.5-1.5)
[2020-11-08] MEDS ORDERED: LEVOTHYROXINE 150 MCG TABLET PO SCH (06:30)
[2020-11-08] MEDS ORDERED: NON-FORMULARY MEDICATION 1 EACH (Levothyroxine Sodium (Levothyroxine) 150 MCG) PO SCH (07:30)
[2020-11-08 08:00] VITALS: BP 177/80
[2020-11-08] MEDS: SEVELAMER HCL 800 MG TABLET PO SCH ×2 (08:47→14:38)
[2020-11-08] MEDS ORDERED: Vitamin B Complex/Vit C/Folic Acid PO SCH (09:00)
[2020-11-08] MEDS ORDERED: NON-FORMULARY MEDICATION 1 EACH (Folic Acid/Vitamin B Comp W-C (Nephro-Vite Tablet) 0.8 MG PO SCH (09:00)
[2020-11-08] MEDS ORDERED: NON-FORMULARY MEDICATION 1 EACH (Famotidine 40 MG) PO SCH (09:00)
[2020-11-08] MEDS ORDERED: METOPROLOL SUCCINATE 50 MG TAB.SR.24H PO SCH (09:00)
[2020-11-08] MEDS ORDERED: FAMOTIDINE 20MG TAB 20 MG TAB PO SCH (09:00)
[2020-11-08 11:46] VITALS: BP 170/41
[2020-11-08 16:00] VITALS: BP 135/32
== END 2020-11-08 16:40 | disposition home or self-care (01) ==
LOC: DAH 05:43 → DAHIP 05:44 → 4DH 13:17
PROVIDERS: ADMIT Internal Medicine; ATTEND Internal Medicine
DX: I44.1 Atrioventricular block, second degree (principal); I13.2 Hypertensive heart and chronic kidney disease with heart failure and with stage 5 chronic kidney disease, or end stage renal disease; E11.22 Type 2 diabetes mellitus with diabetic chronic kidney disease; E11.21 Type 2 diabetes mellitus with diabetic nephropathy; I50.22 Chronic systolic (congestive) heart failure; N18.6 End stage renal disease; E11.51 Type 2 diabetes mellitus with diabetic peripheral angiopathy without gangrene; I25.10 Atherosclerotic heart disease of native coronary artery without angina pectoris; E78.5 Hyperlipidemia, unspecified; E03.9 Hypothyroidism, unspecified; D72.829 Elevated white blood cell count, unspecified; D64.9 Anemia, unspecified; E87.5 Hyperkalemia; I42.0 Dilated cardiomyopathy; F02.80 Dementia in other diseases classified elsewhere, unspecified severity, without behavioral disturbance, psychotic disturbance, mood disturbance, and anxiety; Z86.73 Personal history of transient ischemic attack (TIA), and cerebral infarction without residual deficits; Z87.891 Personal history of nicotine dependence; Z95.0 Presence of cardiac pacemaker; Z99.2 Dependence on renal dialysis; Z79.82 Long term (current) use of aspirin; Z79.4 Long term (current) use of insulin; Z79.899 Other long term (current) drug therapy
CPT/HCPCS: 33225; 33229; 36415 ×3; 71045; 73030; 73060; 73090; 80048 ×2; 82948 ×9; 85025 ×2; 85027; 85610; 85730; 93005; 96374; A4215; A4216; A4221; A4222; A4223 ×3; A4606; A4663; A6260; C1769; C1900; C2621; G0378 ×25; J0360; J0690; J1170; J1815; J2175 ×4; J2250 ×3; J2597; J3490 ×3; J7040; J7070; Q9967; 90935; 99156; 99157; J3010

== ENCOUNTER 2021-07-30 07:38 | Inpatient (IN) | payer MEDICARE ==
[~2021-07-30] VITALS: Ht 162.6 cm; Wt 64.9 kg
[~2021-07-30 07:38] MED LIST changes: +AMLO-258 PO; +DIPH1TAB24 PO; -METO-408 PO; +METO50TA18 PO; +MONT-39 PO; -MONT10TA32 PO; -SODIUM CHLORIDE 0.9% 500ML 500 ML IV SCH
[2021-07-30] MEDS ORDERED: LORAZEPAM 2 MG/ML 1 ML VIAL ONE (08:10)
[2021-07-30 08:11] LABS: BASOPHILS % (AUTO) 0.7 % (0.0-5.0); EOSINOPHILS % (AUTO) 5.9 % (0.0-8.0); HEMATOCRIT 36.7 % (42-54); MEAN CORPUSCULAR HEMOGLOBIN 31.7 pg (27.0-33.0); MEAN CORPUSCULAR HGB CONC 33.2 g/dL (32.0-36.0); MEAN CORPUSCULAR VOLUME 95.3 fL (79-99); MONOCYTES % (AUTO) 6.3 % (3.0-13.0); NEUTROPHILS % (AUTO) 72.7 % (40.0-77.0); PLATELET COUNT (AUTO) 163 K/uL (130-400); RED BLOOD CELL COUNT(AUTO) 3.85 MIL/uL (4.50-6.20); WHITE BLOOD COUNT (AUTO) 10.6 K/uL (4.8-10.8)
[2021-07-30 08:27] LABS: ALBUMIN 4.4 g/dL (3.5-5.0); BILIRUBIN,TOTAL 0.8 mg/dL (0.2-1.0); CREATININE 6.9 mg/dL (0.5-1.5); MAGNESIUM 2.6 mg/dL (1.80-2.40); POTASSIUM 5.2 mmol/L (3.5-5.1); TOTAL PROTEIN, SERUM 7.6 g/dL (6.0-8.3)
[2021-07-30] MEDS ORDERED: 0.9%NACL 1000ML 1,000 ML IV ONE (08:30)
[2021-07-30] MEDS ORDERED: LORAZEPAM 2 MG/ML 1 ML VIAL IM ONE (08:30)
[2021-07-30] MEDS ORDERED: INSULIN HUMULIN R 100 UNIT/ML 3ML SQ ONE (08:30)
[2021-07-30] MEDS ORDERED: VANCOMYCIN 1G VIAL IVPB SCH (09:30)
[2021-07-30] MEDS ORDERED: ZOSYN 3.375GM +NS 50ML IV SCH (09:30)
[2021-07-30] MEDS ORDERED: VANCOMYCIN 1G/250ML KIT 250 ML IV ONE (09:42)
[2021-07-30] MEDS ORDERED: INSULIN HUMULIN R 100 UNIT/ML 3ML ONE (09:43)
[2021-07-30] MEDS ORDERED: ACETAMINOPHEN 650 MG SUPPOSITORY RC ONE ×4 (09:58→19:01)
[2021-07-30] MEDS ORDERED: KAYEXALATE 15GM/60ML PO SCH (11:30)
[2021-07-30] MEDS ORDERED: ETOMIDATE 20MG VIAL IVP ONE (11:32)
[2021-07-30] MEDS ORDERED: ROCURONIUM BROMIDE 10MG/1ML 5ML VL IV ONE (11:32)
[2021-07-30] MEDS ORDERED: IPRATROPIUM/ALBUTEROL SULFATE 3 ML SOLUTION IH PRN (12:30)
[2021-07-30 12:37] LABS: ABG BASE EXCESS 2.1 mmol/L (-2.0-3.0); ABG HCO3 25.8 mmol/L (21.0-28.0); ABG OXYGEN SATURATION 92.3 % (95.0-99.0); ABG PCO2 37 mmHg (35-48)
[2021-07-30] MEDS ORDERED: CALDOLOR 800MG+NS 250ML 250 ML IV SCH (13:00)
[2021-07-30 13:56] LABS: GLUCOSE, CSF 247 mg/dL (40-70); TOTAL PROTEIN, CSF 140 mg/dL (15-45)
[2021-07-30] MEDS: SEVELAMER HCL 800 MG TABLET PO SCH ×2 (14:00→20:02)
[2021-07-30 14:25] LABS: APPEARANCE,CSF SLIGHTLY CLOUDY (CLEAR); COLOR,CSF PINK (COLORLESS); CSF TUBE NUMBER 1
[2021-07-30 14:26] LABS: APPEARANCE2,CSF CLEAR (CLEAR); COLOR2,CSF COLORLESS (COLORLESS); CSF 2ND TUBE NUMBER 3; RED BLOOD CELL1,CSF 920 CMM (0-0); WHITE BLOOD CELL1,CSF 3 CMM (0-5)
[2021-07-30] MEDS ORDERED: 0.9% NACL 250ML IVPB SCH (16:30)
[2021-07-30] MEDS ORDERED: VANCOMYCIN PROTOCOL PER PHARMACY IV SCH (16:30)
[2021-07-30] MEDS ORDERED: ONDA8TAB12 PO (16:48)
[2021-07-30] MEDS ORDERED: LEVO150C4 PO (16:48)
[2021-07-30] MEDS ORDERED: RIVA2.5T PO (16:48)
[2021-07-30] MEDS ORDERED: PRAV40TA3 PO (16:48)
[2021-07-30] MEDS ORDERED: ZOSYN 3.375GM+NS 50ML 50 ML ONE (19:58)
[2021-07-30] MEDS: INSULIN LISPRO 100 UNIT/ML 3ML SQ SCH (20:00)
[2021-07-30] MEDS: ZOSYN 3.375GM +NS 50ML IV SCH (20:02)
[2021-07-30] MEDS: METOPROLOL TARTRATE 50 MG TAB PO SCH (20:02)
[2021-07-30] MEDS: AMLODIPINE 5 MG TAB PO SCH (20:02)
[2021-07-30] MEDS ORDERED: PHARMACY COMMUNICATION MISC SCH (21:30)
[2021-07-30] MEDS ORDERED: DEXTROSE 10%-WATER 1,000 ML IV SCH (21:30)
[2021-07-30 22:05] VITALS: BP 97/71
[2021-07-30 22:30] VITALS: BP 90/66
[2021-07-30] MEDS: METRONIDAZOLE 500MG/100ML BAG 100 ML IVPB SCH (22:34)
[2021-07-30 23:00] VITALS: BP 120/67
[2021-07-30 23:15] VITALS: BP 151/75
[2021-07-30 23:30] VITALS: BP 147/80
[2021-07-30 23:44] LABS: ABG BASE EXCESS -1.1 mmol/L (-2.0-3.0); ABG OXYGEN SATURATION 94.2 % (95.0-99.0); ABG PCO2 29 mmHg (35-48)
[2021-07-30 23:45] VITALS: BP 155/71
[2021-07-30] MEDS: IPRATROPIUM/ALBUTEROL SULFATE 3 ML SOLUTION IH SCH (23:56)
[2021-07-31] VITALS (24 sets, daily range): BP systolic 88–157; BP diastolic 23–117
[2021-07-31] MEDS ORDERED: ACETAMINOPHEN 650 MG SUPPOSITORY RC PRN (03:00)
[2021-07-31] MEDS: ACETAMINOPHEN 650 MG/20.3 ML UDCUP PEG PRN ×2 (03:16→09:07)
[2021-07-31 04:00] LABS: BASOPHILS % (AUTO) 0.4 % (0.0-5.0); EOSINOPHILS % (AUTO) 0.3 % (0.0-8.0); HEMATOCRIT 33.4 % (42-54); LYMPHOCYTES % (AUTO) 6.2 % (21.0-51.0); MEAN CORPUSCULAR HEMOGLOBIN 31.3 pg (27.0-33.0); MEAN CORPUSCULAR HGB CONC 33.8 g/dL (32.0-36.0); MEAN CORPUSCULAR VOLUME 92.5 fL (79-99); NEUTROPHILS % (AUTO) 84.2 % (40.0-77.0); PLATELET COUNT (AUTO) 133 K/uL (130-400); RED BLOOD CELL COUNT(AUTO) 3.61 MIL/uL (4.50-6.20); RED CELL DISTRIBUTION WIDTH 12.1 % (11.0-15.5); WHITE BLOOD COUNT (AUTO) 22.8 K/uL (4.8-10.8)
[2021-07-31] MEDS: INSULIN LISPRO 100 UNIT/ML 3ML SQ SCH ×6 (04:00→20:00)
[2021-07-31] MEDS ORDERED: SODIUM CHLORIDE 3% FOR INHALATION 4 ML/AMP VIAL.NEB IH ONE ×3 (04:04→18:10)
[2021-07-31 04:06] LABS: HEMOGLOBIN A1C 10.7 % (4.0-6.0)
[2021-07-31 04:10] LABS: PHOSPHORUS 3.8 mg/dL (2.5-4.9); POTASSIUM 4.3 mmol/L (3.5-5.1)
[2021-07-31 04:18] LABS: ABG BASE EXCESS -3.9 mmol/L (-2.0-3.0); ABG OXYGEN SATURATION 94.5 % (95.0-99.0); ABG PCO2 29 mmHg (35-48)
[2021-07-31 04:21] LABS: CREATININE 9.2 mg/dL (0.5-1.5)
[2021-07-31] MEDS: METRONIDAZOLE 500MG/100ML BAG 100 ML IVPB SCH ×3 (05:08→21:38)
[2021-07-31] MEDS ORDERED: COMPOUND PO MISCELLANEOUS 1 EACH MISC MISC PRN (06:30)
[2021-07-31] MEDS: IPRATROPIUM/ALBUTEROL SULFATE 3 ML SOLUTION IH SCH ×3 (06:32→23:28)
[2021-07-31] MEDS: VANCOMYCIN 250MG/5ML ORAL SOLUTION 40ML PO SCH ×6 (08:00→20:00)
[2021-07-31] MEDS ORDERED: 0.9%NACL 50ML 50 ML IV ONE (08:31)
[2021-07-31] MEDS ORDERED: NON-FORMULARY MEDICATION 1 EACH (Levothyroxine Sodium (Levothyroxine) 150 MCG) PO SCH (09:00)
[2021-07-31] MEDS: ZOSYN 3.375GM +NS 50ML IV SCH (09:06)
[2021-07-31] MEDS: SEVELAMER HCL 800 MG TABLET PO SCH ×3 (09:07→21:00)
[2021-07-31] MEDS: METOPROLOL TARTRATE 50 MG TAB PO SCH ×2 (09:07→20:45)
[2021-07-31] MEDS: LEVOTHYROXINE 150 MCG TABLET PO SCH (09:07)
[2021-07-31] MEDS: Vitamin B Complex/Vit C/Folic Acid PO SCH (09:07)
[2021-07-31] MEDS ORDERED: CALC667C10 PO (11:13)
[2021-07-31] MEDS ORDERED: [UNRECOGNIZED DRUG - OTHER] IJ SCH (11:30)
[2021-07-31] MEDS ORDERED: COMPOUND IV MISC 1 EACH IVSOLN MISC PRN (11:30)
[2021-07-31] MEDS ORDERED: FOSPHENYTOIN SODIUM IJ SCH (11:30)
[2021-07-31] MEDS ORDERED: LEVETIRACETAM 750 MG in 0.9%NACL 100ML 100 ML IV SCH (11:30)
[2021-07-31] MEDS ORDERED: VANCOMYCIN 1G/250ML KIT 0 ML IV ONE (12:46)
[2021-07-31] MEDS: PANTOPRAZOLE 40 MG/VIAL IVP SCH (13:39)
[2021-07-31] MEDS ORDERED: ALBUMIN (HUMAN) 25% 100 ML IV ONE (14:48)
[2021-07-31] MEDS ORDERED: ALBUMIN (HUMAN) 25% 100 ML IV SCH (15:30)
[2021-07-31 15:50] LABS: ABG BASE EXCESS -5.9 mmol/L (-2.0-3.0); ABG HCO3 17.8 mmol/L (21.0-28.0); ABG OXYGEN SATURATION 91.3 % (95.0-99.0); ABG PCO2 29 mmHg (35-48)
[2021-07-31] MEDS ORDERED: NOREPINEPHRIN 4MG/NS 250ML 250 ML IV ONE (19:27)
[2021-07-31] MEDS ORDERED: DEXTROSE 50%-WATER 50 ML DISP.SYRIN IV ONE (20:53)
[2021-07-31] MEDS: AMLODIPINE 5 MG TAB PO SCH (21:00)
[2021-07-31] MEDS: FLUCONAZOLE 200 MG/NS 100 ML 100 ML IV SCH (21:18)
[2021-07-31] MEDS: MEROPENEM 1 GM VIAL IVP SCH (21:23)
[2021-08-01] VITALS (37 sets, daily range): BP systolic 95–141; BP diastolic 24–84
[2021-08-01 01:03] LABS: ABG BASE EXCESS -3.3 mmol/L (-2.0-3.0); ABG HCO3 21.6 mmol/L (21.0-28.0); ABG OXYGEN SATURATION 86.1 % (95.0-99.0); ABG PCO2 38 mmHg (35-48)
[2021-08-01] MEDS: VANCOMYCIN 250MG/5ML ORAL SOLUTION 40ML PO SCH ×8 (02:00→20:00)
[2021-08-01] MEDS ORDERED: PROPOFOL 1000 MG/100 ML 100 ML IV ONE (02:28)
[2021-08-01] MEDS: ETOMIDATE 20MG VIAL IVP SCH (02:42)
[2021-08-01] MEDS ORDERED: CALCIUM GLUC 1GM/10ML VIAL ONE (02:45)
[2021-08-01] MEDS: FENTANYL 2500MCG+NS 250ML 250 ML IV SCH ×2 (02:59→05:29)
[2021-08-01] MEDS ORDERED: CALCIUM GLUC 1GM/10ML VIAL IVPB SCH (03:00)
[2021-08-01] MEDS ORDERED: PROPOFOL 1000 MG/100 ML IV PRN (03:00)
[2021-08-01] MEDS ORDERED: 0.9%NACL 50ML IV SCH (03:00)
[2021-08-01] MEDS ORDERED: FENTANYL 2500MCG+NS 250ML IV.SOLN IV SCH (03:00)
[2021-08-01] MEDS: INSULIN LISPRO 100 UNIT/ML 3ML SQ SCH ×6 (04:00→20:00)
[2021-08-01 04:34] LABS: ABG BASE EXCESS -4.4 mmol/L (-2.0-3.0); ABG HCO3 24.2 mmol/L (21.0-28.0); ABG OXYGEN SATURATION 96.3 % (95.0-99.0); ABG PCO2 61 mmHg (35-48)
[2021-08-01 04:37] LABS: HEMATOCRIT 34.5 % (42-54); MEAN CORPUSCULAR HEMOGLOBIN 31.1 pg (27.0-33.0); MEAN CORPUSCULAR VOLUME 94.3 fL (79-99); RED BLOOD CELL COUNT(AUTO) 3.66 MIL/uL (4.50-6.20); RED CELL DISTRIBUTION WIDTH 12.3 % (11.0-15.5); WHITE BLOOD COUNT (AUTO) 20.7 K/uL (4.8-10.8)
[2021-08-01 04:51] LABS: ALBUMIN 3.2 g/dL (3.5-5.0); BILIRUBIN,TOTAL 0.9 mg/dL (0.2-1.0); MAGNESIUM 2.4 mg/dL (1.80-2.40); PHOSPHORUS 6.3 mg/dL (2.5-4.9); POTASSIUM 4.4 mmol/L (3.5-5.1); TOTAL PROTEIN, SERUM 6.6 g/dL (6.0-8.3)
[2021-08-01 05:01] LABS: CREATININE 11.3 mg/dL (0.5-1.5)
[2021-08-01] MEDS: METRONIDAZOLE 500MG/100ML BAG 100 ML IVPB SCH ×2 (05:36→14:56)
[2021-08-01] MEDS: IPRATROPIUM/ALBUTEROL SULFATE 3 ML SOLUTION IH SCH ×4 (06:55→23:27)
[2021-08-01] MEDS: SEVELAMER HCL 800 MG TABLET PO SCH ×3 (08:15→20:37)
[2021-08-01] MEDS: MEROPENEM 1 GM VIAL IVP SCH (08:15)
[2021-08-01] MEDS: LEVOTHYROXINE 150 MCG TABLET PO SCH (08:15)
[2021-08-01] MEDS: METOPROLOL TARTRATE 50 MG TAB PO SCH ×2 (08:15→20:36)
[2021-08-01] MEDS: Vitamin B Complex/Vit C/Folic Acid PO SCH (08:15)
[2021-08-01] MEDS: PANTOPRAZOLE 40 MG/VIAL IVP SCH (08:15)
[2021-08-01] MEDS: FLUCONAZOLE 200 MG/NS 100 ML 100 ML IV SCH (08:15)
[2021-08-01] MEDS: FOSPHENYTOIN SODIUM 100 MG in 0.9%NACL 50ML 50 ML IV SCH ×2 (09:33→18:01)
[2021-08-01] MEDS: LEVETIRACETAM 500 MG in 0.9%NACL 100ML 100 ML IV SCH ×2 (09:33→20:41)
[2021-08-01 10:22] LABS: ABG BASE EXCESS -8.3 mmol/L (-2.0-3.0); ABG HCO3 18.2 mmol/L (21.0-28.0); ABG OXYGEN SATURATION 96.8 % (95.0-99.0); ABG PCO2 41 mmHg (35-48)
[2021-08-01] MEDS ORDERED: PHARMACY COMMUNICATION MISC SCH (10:30)
[2021-08-01] MEDS ORDERED: VANCOMYCIN 1G/250ML KIT 250 ML IV SCH (15:00)
[2021-08-01] MEDS: NOREPINEPHRIN 4MG/NS 250ML 250 ML IV SCH ×3 (16:16→21:39)
[2021-08-01 19:28] LABS: ABG BASE EXCESS -6.5 mmol/L (-2.0-3.0); ABG HCO3 17.9 mmol/L (21.0-28.0); ABG OXYGEN SATURATION 99.3 % (95.0-99.0); ABG PCO2 33 mmHg (35-48)
[2021-08-01] MEDS: AMLODIPINE 5 MG TAB PO SCH (20:37)
[2021-08-02] VITALS (24 sets, daily range): BP systolic 93–142; BP diastolic 39–70
[2021-08-02] MEDS: METRONIDAZOLE 500MG/100ML BAG 100 ML IVPB SCH ×3 (00:12→13:13)
[2021-08-02] MEDS: INSULIN LISPRO 100 UNIT/ML 3ML SQ SCH ×6 (00:23→20:00)
[2021-08-02] MEDS: FOSPHENYTOIN SODIUM 100 MG in 0.9%NACL 50ML 50 ML IV SCH ×3 (01:35→21:36)
[2021-08-02] MEDS: NOREPINEPHRIN 4MG/NS 250ML 250 ML IV SCH ×5 (01:42→23:44)
[2021-08-02] MEDS: VANCOMYCIN 250MG/5ML ORAL SOLUTION 40ML PO SCH ×8 (02:00→20:00)
[2021-08-02] MEDS: ETOMIDATE 20MG VIAL IVP SCH (02:15)
[2021-08-02] MEDS: FENTANYL 2500MCG+NS 250ML 250 ML IV SCH (04:04)
[2021-08-02 04:43] LABS: MEAN CORPUSCULAR HEMOGLOBIN 31.2 pg (27.0-33.0); MEAN CORPUSCULAR HGB CONC 32.5 g/dL (32.0-36.0); MEAN CORPUSCULAR VOLUME 96.1 fL (79-99); RED BLOOD CELL COUNT(AUTO) 3.33 MIL/uL (4.50-6.20); WHITE BLOOD COUNT (AUTO) 19.7 K/uL (4.8-10.8)
[2021-08-02 05:04] LABS: ALBUMIN 2.8 g/dL (3.5-5.0); BILIRUBIN,TOTAL 1.3 mg/dL (0.2-1.0); CREATININE 7.6 mg/dL (0.5-1.5); PHENYTOIN (DILANTIN) 12.2 mcg/mL (10.0-20.0); PHOSPHORUS 6.2 mg/dL (2.5-4.9); POTASSIUM 3.9 mmol/L (3.5-5.1); TOTAL PROTEIN, SERUM 6.7 g/dL (6.0-8.3)
[2021-08-02] MEDS: IPRATROPIUM/ALBUTEROL SULFATE 3 ML SOLUTION IH SCH ×4 (06:32→23:21)
[2021-08-02 06:39] LABS: ABG BASE EXCESS -5.9 mmol/L (-2.0-3.0); ABG HCO3 19.9 mmol/L (21.0-28.0); ABG PCO2 40 mmHg (35-48)
[2021-08-02] MEDS: METOPROLOL TARTRATE 50 MG TAB PO SCH ×2 (09:40→20:09)
[2021-08-02] MEDS: LEVETIRACETAM 500 MG in 0.9%NACL 100ML 100 ML IV SCH ×2 (09:40→20:14)
[2021-08-02] MEDS: SEVELAMER HCL 800 MG TABLET PO SCH ×3 (09:40→20:14)
[2021-08-02] MEDS: Vitamin B Complex/Vit C/Folic Acid PO SCH (09:40)
[2021-08-02] MEDS: PANTOPRAZOLE 40 MG/VIAL IVP SCH (09:40)
[2021-08-02] MEDS: MEROPENEM 1 GM VIAL IVP SCH (09:40)
[2021-08-02] MEDS: FLUCONAZOLE 200 MG/NS 100 ML 100 ML IV SCH (09:40)
[2021-08-02] MEDS: LEVOTHYROXINE 150 MCG TABLET PO SCH (09:40)
[2021-08-02] MEDS: AMLODIPINE 5 MG TAB PO SCH (20:08)
[2021-08-03] VITALS (48 sets, daily range): BP systolic 75–140; BP diastolic 30–108
[2021-08-03] MEDS: VANCOMYCIN 250MG/5ML ORAL SOLUTION 40ML PO SCH ×8 (02:00→21:09)
[2021-08-03] MEDS: ETOMIDATE 20MG VIAL IVP SCH (02:15)
[2021-08-03] MEDS: INSULIN LISPRO 100 UNIT/ML 3ML SQ SCH ×6 (04:32→20:00)
[2021-08-03 04:34] LABS: BASOPHILS % (AUTO) 0.5 % (0.0-5.0); EOSINOPHILS % (AUTO) 1.5 % (0.0-8.0); HEMATOCRIT 33.5 % (42-54); LYMPHOCYTES % (AUTO) 3.4 % (21.0-51.0); MEAN CORPUSCULAR HEMOGLOBIN 30.9 pg (27.0-33.0); MEAN CORPUSCULAR HGB CONC 31.3 g/dL (32.0-36.0); MEAN CORPUSCULAR VOLUME 98.5 fL (79-99); MONOCYTES % (AUTO) 6.4 % (3.0-13.0); NEUTROPHILS % (AUTO) 87.4 % (40.0-77.0); PLATELET COUNT (AUTO) 166 K/uL (130-400); RED CELL DISTRIBUTION WIDTH 13.2 % (11.0-15.5); WHITE BLOOD COUNT (AUTO) 16.6 K/uL (4.8-10.8)
[2021-08-03 04:56] LABS: PHOSPHORUS 7.3 mg/dL (2.5-4.9)
[2021-08-03 05:11] LABS: CREATININE 9.6 mg/dL (0.5-1.5)
[2021-08-03] MEDS: NOREPINEPHRIN 4MG/NS 250ML 250 ML IV SCH ×2 (05:56→13:23)
[2021-08-03] MEDS: IPRATROPIUM/ALBUTEROL SULFATE 3 ML SOLUTION IH SCH ×4 (06:17→23:04)
[2021-08-03 07:55] LABS: ABG BASE EXCESS -6.8 mmol/L (-2.0-3.0); ABG HCO3 18.3 mmol/L (21.0-28.0); ABG OXYGEN SATURATION 97.7 % (95.0-99.0); ABG PCO2 36 mmHg (35-48)
[2021-08-03] MEDS ORDERED: SODIUM BICARB 50MEQ 50ML VIAL IV SCH (08:00)
[2021-08-03] MEDS ORDERED: SODIUM BICARB 50MEQ 50ML VIAL 50 ML ONE (08:00)
[2021-08-03] MEDS: SEVELAMER HCL 800 MG TABLET PO SCH ×3 (08:14→21:00)
[2021-08-03] MEDS: LEVOTHYROXINE 150 MCG TABLET PO SCH (08:14)
[2021-08-03] MEDS: METOPROLOL TARTRATE 50 MG TAB PO SCH ×2 (08:14→21:00)
[2021-08-03] MEDS: MEROPENEM 1 GM VIAL IVP SCH (08:14)
[2021-08-03] MEDS: Vitamin B Complex/Vit C/Folic Acid PO SCH (08:14)
[2021-08-03] MEDS: PANTOPRAZOLE 40 MG/VIAL IVP SCH (08:14)
[2021-08-03] MEDS: FOSPHENYTOIN SODIUM 100 MG in 0.9%NACL 50ML 50 ML IV SCH ×2 (08:15→21:08)
[2021-08-03] MEDS: LEVETIRACETAM 500 MG in 0.9%NACL 100ML 100 ML IV SCH ×2 (10:32→21:08)
[2021-08-03] MEDS ORDERED: COMPOUND IV MISC 1 EACH IVSOLN MISC PRN (12:00)
[2021-08-03] MEDS: AMLODIPINE 5 MG TAB PO SCH (21:00)
[2021-08-03] MEDS ORDERED: HYDROMORPHONE 0.5 MG SYG (0.5MG/0.5ML) IVP PRN (21:00)
[2021-08-03] MEDS: MIDODRINE HCL 5 MG TABLET PO SCH (21:09)
[2021-08-04] VITALS (29 sets, daily range): BP systolic 86–143; BP diastolic 24–78
[2021-08-04] MEDS: NOREPINEPHRIN 4MG/NS 250ML 250 ML IV SCH ×2 (01:27→04:59)
[2021-08-04] MEDS: VANCOMYCIN 250MG/5ML ORAL SOLUTION 40ML PO SCH ×8 (01:29→20:00)
[2021-08-04] MEDS: ETOMIDATE 20MG VIAL IVP SCH (01:33)
[2021-08-04 04:52] LABS: BASOPHILS % (AUTO) 0.5 % (0.0-5.0); EOSINOPHILS % (AUTO) 0.5 % (0.0-8.0); HEMATOCRIT 31.2 % (42-54); LYMPHOCYTES % (AUTO) 5.2 % (21.0-51.0); MEAN CORPUSCULAR HGB CONC 31.1 g/dL (32.0-36.0); MEAN CORPUSCULAR VOLUME 99.7 fL (79-99); NEUTROPHILS % (AUTO) 84.3 % (40.0-77.0); PLATELET COUNT (AUTO) 162 K/uL (130-400); RED BLOOD CELL COUNT(AUTO) 3.13 MIL/uL (4.50-6.20); RED CELL DISTRIBUTION WIDTH 13.5 % (11.0-15.5); WHITE BLOOD COUNT (AUTO) 15.4 K/uL (4.8-10.8)
[2021-08-04 04:58] LABS: INR 1.21 (0.85-1.15)
[2021-08-04 04:59] LABS: PARTIAL THROMBOPLASTIN TIME 43.3 SEC (26.3-35.5)
[2021-08-04 05:00] LABS: ALBUMIN 2.5 g/dL (3.5-5.0); BILIRUBIN,TOTAL 2.6 mg/dL (0.2-1.0); CREATININE 7.2 mg/dL (0.5-1.5); POTASSIUM 3.6 mmol/L (3.5-5.1)
[2021-08-04] MEDS: INSULIN LISPRO 100 UNIT/ML 3ML SQ SCH ×6 (05:06→19:49)
[2021-08-04] MEDS: IPRATROPIUM/ALBUTEROL SULFATE 3 ML SOLUTION IH SCH ×3 (06:18→18:38)
[2021-08-04 07:40] LABS: ABG HCO3 11.7 mmol/L (21.0-28.0); ABG OXYGEN SATURATION 95.9 % (95.0-99.0); ABG PCO2 23 mmHg (35-48)
[2021-08-04] MEDS: MIDODRINE HCL 5 MG TABLET PO SCH ×3 (08:12→20:20)
[2021-08-04] MEDS: SEVELAMER HCL 800 MG TABLET PO SCH ×3 (08:12→20:05)
[2021-08-04] MEDS: Vitamin B Complex/Vit C/Folic Acid PO SCH (08:12)
[2021-08-04] MEDS: METOPROLOL TARTRATE 50 MG TAB PO SCH ×2 (08:12→20:05)
[2021-08-04] MEDS: MEROPENEM 1 GM VIAL IVP SCH (08:12)
[2021-08-04] MEDS: PANTOPRAZOLE 40 MG/VIAL IVP SCH (08:12)
[2021-08-04] MEDS: LEVOTHYROXINE 150 MCG TABLET PO SCH (08:12)
[2021-08-04] MEDS: FOSPHENYTOIN SODIUM 100 MG in 0.9%NACL 50ML 50 ML IV SCH ×2 (08:13→20:20)
[2021-08-04] MEDS: LEVETIRACETAM 500 MG in 0.9%NACL 100ML 100 ML IV SCH ×2 (08:13→20:20)
[2021-08-04 08:16] LABS: HEPATITIS Bs ANTIGEN SCREEN P Negative (Negative)
[2021-08-04] MEDS ORDERED: IOHEXOL-350 75 ML VIAL IV ONE (09:59)
[2021-08-04] MEDS: AMLODIPINE 5 MG TAB PO SCH (20:04)
[2021-08-05] VITALS (62 sets, daily range): BP systolic 93–170; BP diastolic 33–113
[2021-08-05] MEDS: VANCOMYCIN 250MG/5ML ORAL SOLUTION 40ML PO SCH ×8 (02:27→20:24)
[2021-08-05 03:59] LABS: MEAN CORPUSCULAR VOLUME 93.8 fL (79-99); WHITE BLOOD COUNT (AUTO) 11.9 K/uL (4.8-10.8)
[2021-08-05 04:00] LABS: BASOPHILS % (AUTO) 0.5 % (0.0-5.0); EOSINOPHILS % (AUTO) 1.2 % (0.0-8.0); LYMPHOCYTES % (AUTO) 5.5 % (21.0-51.0); MEAN CORPUSCULAR HEMOGLOBIN 30.9 pg (27.0-33.0); MONOCYTES % (AUTO) 8.6 % (3.0-13.0); NEUTROPHILS % (AUTO) 83.3 % (40.0-77.0); PLATELET COUNT (AUTO) 182 K/uL (130-400); RED CELL DISTRIBUTION WIDTH 13.5 % (11.0-15.5)
[2021-08-05 04:18] LABS: ALBUMIN 2.2 g/dL (3.5-5.0); BILIRUBIN,TOTAL 2.5 mg/dL (0.2-1.0); MAGNESIUM 2.5 mg/dL (1.80-2.40); PHOSPHORUS 7.1 mg/dL (2.5-4.9); POTASSIUM 3.7 mmol/L (3.5-5.1); TOTAL PROTEIN, SERUM 5.9 g/dL (6.0-8.3)
[2021-08-05 04:19] LABS: CREATININE 8.8 mg/dL (0.5-1.5)
[2021-08-05] MEDS: INSULIN LISPRO 100 UNIT/ML 3ML SQ SCH ×7 (05:22→23:37)
[2021-08-05] MEDS: IPRATROPIUM/ALBUTEROL SULFATE 3 ML SOLUTION IH SCH ×5 (05:57→23:34)
[2021-08-05] MEDS: LEVOTHYROXINE 150 MCG TABLET PO SCH (06:57)
[2021-08-05] MEDS: PANTOPRAZOLE 40 MG/VIAL IVP SCH (08:23)
[2021-08-05] MEDS: MIDODRINE HCL 5 MG TABLET PO SCH ×4 (08:23→20:26)
[2021-08-05] MEDS: SEVELAMER HCL 800 MG TABLET PO SCH ×3 (08:23→20:25)
[2021-08-05] MEDS: MEROPENEM 1 GM VIAL IVP SCH (08:23)
[2021-08-05] MEDS: Vitamin B Complex/Vit C/Folic Acid PO SCH (08:23)
[2021-08-05] MEDS: METOPROLOL TARTRATE 50 MG TAB PO SCH ×2 (08:24→20:25)
[2021-08-05] MEDS: LEVETIRACETAM 500 MG in 0.9%NACL 100ML 100 ML IV SCH ×2 (08:41→20:24)
[2021-08-05] MEDS: FOSPHENYTOIN SODIUM 100 MG in 0.9%NACL 50ML 50 ML IV SCH ×2 (09:01→20:24)
[2021-08-05] MEDS ORDERED: SODIUM BICARB 50MEQ 50ML VIAL IV SCH (09:55)
[2021-08-05] MEDS ORDERED: MIDODRINE HCL 5 MG TABLET PO PRN (10:00)
[2021-08-05] MEDS: 0.9% NACL 500ML IV.SOLN 500 ML IV SCH ×9 (10:22→17:09)
[2021-08-05] MEDS ORDERED: COMPOUND IV REFRIGERATED 1 EACH IVSOLN MISC PRN (12:00)
[2021-08-05] MEDS: SODIUM BICARBONATE 650 MG TAB PO SCH ×2 (12:31→17:09)
[2021-08-05] MEDS ORDERED: MIDODRINE HCL 5 MG TABLET PO SCH (14:00)
[2021-08-05] MEDS: METOCLOPRAMIDE 10 MG/2 ML VIAL IVP SCH ×2 (18:38→23:37)
[2021-08-05 21:07] LABS: HSV TYPE 1/2 COMBINED IGM CSF 0.21 IV (<=0.89); MUMPS VIRUS IGG ANTIBODY CSF <5.0 AU/mL (<=10.9); MUMPS VIRUS IGM ANTIBODY CSF 0.08 IV (<=0.79); RUBEOLA (MEASLES) IGM CSF 0.16 AU (0.00-0.79); VARICELLA IGG ANTIBODY CSF <10.0 IV (.); WEST NILE VIRUS IGG CSF 0.07 IV (<=1.29); WEST NILE VIRUS IGM AB CSF 0.01 IV (<=0.89)
[2021-08-06] VITALS (37 sets, daily range): BP systolic 75–180; BP diastolic 23–102
[2021-08-06] MEDS: VANCOMYCIN 250MG/5ML ORAL SOLUTION 40ML PO SCH ×8 (01:29→20:00)
[2021-08-06 03:43] LABS: HEMATOCRIT 28.7 % (42-54); MEAN CORPUSCULAR HEMOGLOBIN 31.1 pg (27.0-33.0); MEAN CORPUSCULAR HGB CONC 33.8 g/dL (32.0-36.0); RED BLOOD CELL COUNT(AUTO) 3.12 MIL/uL (4.50-6.20); RED CELL DISTRIBUTION WIDTH 13.4 % (11.0-15.5); WHITE BLOOD COUNT (AUTO) 8.4 K/uL (4.8-10.8)
[2021-08-06] MEDS: INSULIN LISPRO 100 UNIT/ML 3ML SQ SCH ×5 (04:00→20:04)
[2021-08-06 04:05] LABS: CREATININE 5.7 mg/dL (0.5-1.5); POTASSIUM 3.5 mmol/L (3.5-5.1)
[2021-08-06] MEDS: METOCLOPRAMIDE 10 MG/2 ML VIAL IVP SCH ×3 (05:03→17:17)
[2021-08-06] MEDS: LEVOTHYROXINE 150 MCG TABLET PO SCH (06:37)
[2021-08-06] MEDS: IPRATROPIUM/ALBUTEROL SULFATE 3 ML SOLUTION IH SCH ×4 (07:00→23:32)
[2021-08-06] MEDS: Vitamin B Complex/Vit C/Folic Acid PO SCH (08:03)
[2021-08-06] MEDS: PANTOPRAZOLE 40 MG/VIAL IVP SCH (08:03)
[2021-08-06] MEDS: MEROPENEM 1 GM VIAL IVP SCH (08:03)
[2021-08-06] MEDS: SODIUM BICARBONATE 650 MG TAB PO SCH ×3 (08:04→16:38)
[2021-08-06] MEDS: FOSPHENYTOIN SODIUM 100 MG in 0.9%NACL 50ML 50 ML IV SCH ×2 (08:04→20:23)
[2021-08-06] MEDS: LEVETIRACETAM 500 MG in 0.9%NACL 100ML 100 ML IV SCH ×2 (08:04→20:11)
[2021-08-06] MEDS: SEVELAMER HCL 800 MG TABLET PO SCH ×3 (08:05→20:09)
[2021-08-06] MEDS: MIDODRINE HCL 5 MG TABLET PO SCH ×3 (09:00→20:09)
[2021-08-06] MEDS ORDERED: 0.9% NACL 250ML IV ONE (17:30)
[2021-08-06] MEDS ORDERED: VANCOMYCIN 1G/250ML KIT 250 ML IV SCH (18:00)
[2021-08-06] MEDS ORDERED: DOXYCYCLINE 100MG+NS 250ML IV ONE (18:00)
[2021-08-06] MEDS: [UNRECOGNIZED DRUG - OTHER] IV SCH (18:31)
[2021-08-06] MEDS: ERYTHROMYCIN LACTOBIONATE IV SCH (18:31)
[2021-08-06] MEDS ORDERED: METOPROLOL TARTRATE 50 MG TAB PO SCH (21:00)
[2021-08-07] VITALS (24 sets, daily range): BP systolic 74–155; BP diastolic 29–76
[2021-08-07] MEDS: VANCOMYCIN 250MG/5ML ORAL SOLUTION 40ML PO SCH ×8 (02:00→20:48)
[2021-08-07] MEDS: INSULIN LISPRO 100 UNIT/ML 3ML SQ SCH ×6 (04:00→20:00)
[2021-08-07 04:17] LABS: HEMATOCRIT 31.2 % (42-54); MEAN CORPUSCULAR HEMOGLOBIN 30.5 pg (27.0-33.0); MEAN CORPUSCULAR HGB CONC 32.7 g/dL (32.0-36.0); MEAN CORPUSCULAR VOLUME 93.4 fL (79-99); PLATELET COUNT (AUTO) 226 K/uL (130-400); RED BLOOD CELL COUNT(AUTO) 3.34 MIL/uL (4.50-6.20); WHITE BLOOD COUNT (AUTO) 8.3 K/uL (4.8-10.8)
[2021-08-07 04:24] LABS: ALBUMIN 2.2 g/dL (3.5-5.0); BILIRUBIN,DIRECT 1.5 mg/dL (0.0-0.3); BILIRUBIN,TOTAL 2.3 mg/dL (0.2-1.0); CREATININE 7.5 mg/dL (0.5-1.5); PHENYTOIN (DILANTIN) 6.7 mcg/mL (10.0-20.0); PHOSPHORUS 6.6 mg/dL (2.5-4.9); POTASSIUM 3.6 mmol/L (3.5-5.1); TOTAL PROTEIN, SERUM 6.3 g/dL (6.0-8.3)
[2021-08-07 04:50] LABS: EOSINOPHILS % (MANUAL) 11 % (1-6); LYMPHOCYTES % (MANUAL) 7 % (22-44); MAN.DIFF COMMENT-IMPRESSION MANUAL DIFFERENTIAL; MONOCYTES % (MANUAL) 13 % (2-9); SEGMENTED NEUTROPHILS % 69 % (40-70)
[2021-08-07 04:51] LABS: PLATELET MORPHOLOGY COMMENT ADEQUATE
[2021-08-07] MEDS: [UNRECOGNIZED DRUG - OTHER] IV SCH ×2 (05:15→17:26)
[2021-08-07] MEDS: ERYTHROMYCIN LACTOBIONATE IV SCH ×2 (05:15→17:26)
[2021-08-07] MEDS: METOCLOPRAMIDE 10 MG/2 ML VIAL IVP SCH ×4 (06:17→17:25)
[2021-08-07] MEDS: IPRATROPIUM/ALBUTEROL SULFATE 3 ML SOLUTION IH SCH ×4 (06:47→23:41)
[2021-08-07] MEDS: PANTOPRAZOLE 40 MG/VIAL IVP SCH (09:07)
[2021-08-07] MEDS: LEVETIRACETAM 500 MG in 0.9%NACL 100ML 100 ML IV SCH ×2 (09:07→20:29)
[2021-08-07] MEDS: FOSPHENYTOIN SODIUM 100 MG in 0.9%NACL 50ML 50 ML IV SCH ×2 (09:07→20:29)
[2021-08-07] MEDS: MEROPENEM 1 GM VIAL IVP SCH (09:07)
[2021-08-07] MEDS: MIDODRINE HCL 5 MG TABLET PO SCH ×3 (09:35→20:28)
[2021-08-07] MEDS: SODIUM BICARBONATE 650 MG TAB PO SCH ×3 (09:35→17:25)
[2021-08-07] MEDS: SEVELAMER HCL 800 MG TABLET PO SCH ×3 (09:36→20:28)
[2021-08-07] MEDS: Vitamin B Complex/Vit C/Folic Acid PO SCH (09:36)
[2021-08-07] MEDS: LEVOTHYROXINE 150 MCG TABLET PO SCH (09:36)
[2021-08-07] MEDS: BALSAM PERU/CASTOR OIL 60 GM TUBE TP SCH (21:00)
[2021-08-07] MEDS ORDERED: EPOETIN ALFA-EPBX (ESRD) 10,000 UNIT/ML VIAL SQ SCH (21:00)
[2021-08-08] VITALS (28 sets, daily range): BP systolic 87–131; BP diastolic 30–88
[2021-08-08] MEDS: METOCLOPRAMIDE 10 MG/2 ML VIAL IVP SCH ×3 (00:35→11:42)
[2021-08-08] MEDS: NOREPINEPHRIN 4MG/NS 250ML 250 ML IV SCH (01:11)
[2021-08-08] MEDS: INSULIN LISPRO 100 UNIT/ML 3ML SQ SCH ×4 (01:22→12:00)
[2021-08-08] MEDS: VANCOMYCIN 250MG/5ML ORAL SOLUTION 40ML PO SCH ×6 (02:00→14:23)
[2021-08-08 04:28] LABS: HEMATOCRIT 29.1 % (42-54); MEAN CORPUSCULAR HEMOGLOBIN 31.1 pg (27.0-33.0); MEAN CORPUSCULAR VOLUME 97.3 fL (79-99); PLATELET COUNT (AUTO) 229 K/uL (130-400); RED BLOOD CELL COUNT(AUTO) 2.99 MIL/uL (4.50-6.20)
[2021-08-08 04:47] LABS: POTASSIUM 3.5 mmol/L (3.5-5.1)
[2021-08-08 04:54] LABS: CREATININE 9.5 mg/dL (0.5-1.5)
[2021-08-08 05:47] LABS: BAND NEUTROPHILS % (MANUAL) 1 % (0-2); BASOPHILS % (MANUAL) 1 % (0-2); EOSINOPHILS % (MANUAL) 10 % (1-6); LYMPHOCYTES % (MANUAL) 14 % (22-44); MONOCYTES % (MANUAL) 5 % (2-9); SEGMENTED NEUTROPHILS % 69 % (40-70)
[2021-08-08 05:48] LABS: MAN.DIFF COMMENT-IMPRESSION MANUAL DIFFERENTIAL
[2021-08-08] MEDS: ERYTHROMYCIN LACTOBIONATE IV SCH (06:37)
[2021-08-08] MEDS: [UNRECOGNIZED DRUG - OTHER] IV SCH (06:37)
[2021-08-08] MEDS: IPRATROPIUM/ALBUTEROL SULFATE 3 ML SOLUTION IH SCH ×2 (06:57→11:49)
[2021-08-08] MEDS: MEROPENEM 1 GM VIAL IVP SCH (08:32)
[2021-08-08] MEDS: PANTOPRAZOLE 40 MG/VIAL IVP SCH (08:32)
[2021-08-08] MEDS: SODIUM BICARBONATE 650 MG TAB PO SCH ×2 (08:33→11:41)
[2021-08-08] MEDS: SEVELAMER HCL 800 MG TABLET PO SCH ×2 (08:33→14:23)
[2021-08-08] MEDS: MIDODRINE HCL 5 MG TABLET PO SCH ×2 (08:33→14:24)
[2021-08-08] MEDS: LEVOTHYROXINE 150 MCG TABLET PO SCH (08:33)
[2021-08-08] MEDS: Vitamin B Complex/Vit C/Folic Acid PO SCH (08:33)
[2021-08-08] MEDS: BALSAM PERU/CASTOR OIL 60 GM TUBE TP SCH ×2 (08:34→14:24)
[2021-08-08] MEDS ORDERED: 0.9%NACL 1000ML 2,000 ML IV ONE (09:41)
[2021-08-08] MEDS: FOSPHENYTOIN SODIUM 100 MG in 0.9%NACL 50ML 50 ML IV SCH (11:42)
[2021-08-08] MEDS: LEVETIRACETAM 500 MG in 0.9%NACL 100ML 100 ML IV SCH (11:42)
[2021-08-08] MEDS ORDERED: VANCOMYCIN 1G/250ML KIT 250 ML IV SCH (18:00)
[2021-08-09 10:13] LABS: ROCKY MT SPOTTED FEVER IGG <1:64 (Neg:<1:64); ROCKY MT SPOTTED FEVER IGM <1:64 (Neg:<1:64); TYPHUS FEVER AB IGG <1:64 (Neg:<1:64); TYPHUS FEVER AB IGM <1:64 (Neg:<1:64)
== END 2021-08-08 15:30 | DRG 871 ==
LOC: EDH 07:38 → EDHIP 09:58 → 3AH 10:44 → EDHIP 13:23 → 2DH 21:25 → 2CH 08-01 02:28 → 2DH 08-01 03:30 → 2BH 08-01 05:19 → 2CH 08-06 15:54
PROVIDERS: ADMIT Internal Medicine Infectious Disease; ATTEND Internal Medicine Infectious Disease
PROC: 5A1D70Z Performance of Urinary Filtration, Intermittent, Less than 6 Hours Per Day (ICD-10-PCS; principal; 2021-07-31)
PROC: 5A09357 Assistance with Respiratory Ventilation, Less than 24 Consecutive Hours, Continuous Positive Airway Pressure (ICD-10-PCS; 2021-07-31)
PROC: 5A09357 Assistance with Respiratory Ventilation, Less than 24 Consecutive Hours, Continuous Positive Airway Pressure (ICD-10-PCS; 2021-08-01)
PROC: 5A1945Z Respiratory Ventilation, 24-96 Consecutive Hours (ICD-10-PCS; 2021-08-01)
PROC: 0BH17EZ Insertion of Endotracheal Airway into Trachea, Via Natural or Artificial Opening (ICD-10-PCS; 2021-08-01)
PROC: 06HM33Z Insertion of Infusion Device into Right Femoral Vein, Percutaneous Approach (ICD-10-PCS; 2021-08-01)
PROC: 5A09357 Assistance with Respiratory Ventilation, Less than 24 Consecutive Hours, Continuous Positive Airway Pressure (ICD-10-PCS; 2021-08-02)
PROC: 5A1D70Z Performance of Urinary Filtration, Intermittent, Less than 6 Hours Per Day (ICD-10-PCS; 2021-08-03)
PROC: 5A09357 Assistance with Respiratory Ventilation, Less than 24 Consecutive Hours, Continuous Positive Airway Pressure (ICD-10-PCS; 2021-08-03)
PROC: 5A1D70Z Performance of Urinary Filtration, Intermittent, Less than 6 Hours Per Day (ICD-10-PCS; 2021-08-05)
PROC: 5A1D70Z Performance of Urinary Filtration, Intermittent, Less than 6 Hours Per Day (ICD-10-PCS; 2021-08-08)
DX: A41.9 Sepsis, unspecified organism (principal); J96.01 Acute respiratory failure with hypoxia; J18.9 Pneumonia, unspecified organism; N18.6 End stage renal disease; G93.41 Metabolic encephalopathy; I21.4 Non-ST elevation (NSTEMI) myocardial infarction; S06.5X9A Traumatic subdural hemorrhage with loss of consciousness of unspecified duration, initial encounter; A09 Infectious gastroenteritis and colitis, unspecified; G81.91 Hemiplegia, unspecified affecting right dominant side; I13.2 Hypertensive heart and chronic kidney disease with heart failure and with stage 5 chronic kidney disease, or end stage renal disease; I50.20 Unspecified systolic (congestive) heart failure; E11.65 Type 2 diabetes mellitus with hyperglycemia; E11.22 Type 2 diabetes mellitus with diabetic chronic kidney disease; E87.5 Hyperkalemia; K82.8 Other specified diseases of gallbladder; E78.5 Hyperlipidemia, unspecified; Z20.822 Contact with and (suspected) exposure to COVID-19; D64.9 Anemia, unspecified; E03.9 Hypothyroidism, unspecified; E11.51 Type 2 diabetes mellitus with diabetic peripheral angiopathy without gangrene; E78.00 Pure hypercholesterolemia, unspecified; E86.0 Dehydration; I25.10 Atherosclerotic heart disease of native coronary artery without angina pectoris; I49.5 Sick sinus syndrome; I70.0 Atherosclerosis of aorta; J84.10 Pulmonary fibrosis, unspecified; K31.89 Other diseases of stomach and duodenum; K57.30 Diverticulosis of large intestine without perforation or abscess without bleeding; L89.152 Pressure ulcer of sacral region, stage 2; R13.12 Dysphagia, oropharyngeal phase; R29.6 Repeated falls; W19.XXXA Unspecified fall, initial encounter; Y93.89 Activity, other specified; Y92.098 Other place in other non-institutional residence as the place of occurrence of the external cause; Y99.8 Other external cause status; Z89.412 Acquired absence of left great toe; Z74.01 Bed confinement status; Z99.2 Dependence on renal dialysis; Z79.01 Long term (current) use of anticoagulants; Z87.01 Personal history of pneumonia (recurrent); Z87.891 Personal history of nicotine dependence; Z95.0 Presence of cardiac pacemaker; Z95.1 Presence of aortocoronary bypass graft
CPT/HCPCS: 31500; 36415; 36600; 70450; 70486; 71045; 72125; 74176; 76705; 80048; 80053; 80076; 80177; 80185; 80202; 82140; 82435; 82550; 82803; 82945; 82947; 82948; 83036; 83605; 83690; 83735; 83874; 83880; 84075; 84100; 84132; 84145; 84157; 84295; 84443; 84484; 85018; 85025; 85027; 85378; 85610; 85730; 86694; 86704; 86706; 86735; 86757; 86765; 86787; 86788; 87040; 87071; 87147; 87205; 87340; 87635; 87804; 89051; 90935; 92610; 93005; 93306; 93970; 94002; 94003; 94150; 94640; 94660; 94664; 97039; 99291; C9113; G0378; G0390; J0610; J1364; J1450; J1815; J1953; J2060; J2185; J2543; J2704; J2765; J3010; J3370; J3490; J7030; J7040; J7050; J7070; P9046; P9047; Q2009; Q9967

== ENCOUNTER 2021-10-03 10:45 | Observation (INO) | payer MEDICARE, OTHER ==
[~2021-10-03 10:45] MED LIST changes: -AMLO-258 PO; -ASPI81TA40 PO; -DIPH1TAB24 PO; -FAMO40TA7 PO; -GLIP10TA9 PO; -INSU100I21 SQ; -LOSA100T58 PO; -METO50TA18 PO; -MONT-39 PO; -PRAV80TA21 PO
[2021-10-03 11:38] LABS: HEMATOCRIT 32.5 % (42-54); MEAN CORPUSCULAR HEMOGLOBIN 30.4 pg (27.0-33.0); MEAN CORPUSCULAR HGB CONC 33.5 g/dL (32.0-36.0); MEAN CORPUSCULAR VOLUME 90.5 fL (79-99); PLATELET COUNT (AUTO) 145 K/uL (130-400); RED BLOOD CELL COUNT(AUTO) 3.59 MIL/uL (4.50-6.20); RED CELL DISTRIBUTION WIDTH 14.5 % (11.0-15.5); WHITE BLOOD COUNT (AUTO) 5.6 K/uL (4.8-10.8)
[2021-10-03 11:46] LABS: CREATININE 3.2 mg/dL (0.5-1.5); POTASSIUM 4.3 mmol/L (3.5-5.1)
[2021-10-03 11:51] LABS: ALBUMIN 3.7 g/dL (3.5-5.0); BILIRUBIN,TOTAL 0.6 mg/dL (0.2-1.0); TOTAL PROTEIN, SERUM 7.7 g/dL (6.0-8.3)
[2021-10-03 12:55] LABS: EOSINOPHILS % (MANUAL) 6 % (1-6); LYMPHOCYTES % (MANUAL) 21 % (22-44); MONOCYTES % (MANUAL) 4 % (2-9); SEGMENTED NEUTROPHILS % 69 % (40-70)
[2021-10-03 12:56] LABS: MAN.DIFF COMMENT-IMPRESSION MANUAL DIFFERENTIAL; PLATELET MORPHOLOGY COMMENT ADEQUATE
[2021-10-03] MEDS ORDERED: DEXTROSE 10%-WATER 250 ML IV.SOLN. IV STA (13:31)
[2021-10-03] MEDS ORDERED: ONDANSETRON 4MG INJ ONE (16:02)
[2021-10-03] MEDS ORDERED: ONDANSETRON 4MG INJ IVP ONE ×2 (16:30)
[2021-10-03] MEDS ORDERED: DEXTROSE 10%-WATER 1,000 ML IV ONE (16:53)
[2021-10-03] MEDS: HEPARIN 5,000 UNIT VIAL SQ SCH (17:00)
[2021-10-03] MEDS ORDERED: ACETAMINOPHEN 325 MG TAB PO PRN (17:00)
[2021-10-03] MEDS ORDERED: ONDANSETRON 4MG INJ IVP PRN (17:00)
[2021-10-03] MEDS: DEXTROSE 10%-WATER 1,000 ML IV SCH (17:07)
[2021-10-03] MEDS ORDERED: LABETALOL 20MG SYG IV ONE (17:30)
[2021-10-03] MEDS ORDERED: PROMETHAZINE HCL 25 MG/ML 1ML AMPULE IM ONE (17:30)
[2021-10-04] MEDS: DEXTROSE 10%-WATER 1,000 ML IV SCH (05:19)
[2021-10-04] MEDS: HEPARIN 5,000 UNIT VIAL SQ SCH (05:19)
[2021-10-04 05:57] LABS: BASOPHILS % (AUTO) 0.3 % (0.0-5.0); EOSINOPHILS % (AUTO) 0.3 % (0.0-8.0); HEMATOCRIT 26.8 % (42-54); LYMPHOCYTES % (AUTO) 8.2 % (21.0-51.0); MEAN CORPUSCULAR VOLUME 91.2 fL (79-99); MONOCYTES % (AUTO) 4.2 % (3.0-13.0); NEUTROPHILS % (AUTO) 86.4 % (40.0-77.0); PLATELET COUNT (AUTO) 128 K/uL (130-400); RED BLOOD CELL COUNT(AUTO) 2.94 MIL/uL (4.50-6.20); RED CELL DISTRIBUTION WIDTH 14.9 % (11.0-15.5); WHITE BLOOD COUNT (AUTO) 18.4 K/uL (4.8-10.8)
[2021-10-04 06:15] LABS: CREATININE 5.1 mg/dL (0.5-1.5); MAGNESIUM 2.1 mg/dL (1.80-2.40); POTASSIUM 4.9 mmol/L (3.5-5.1)
[2021-10-04 06:19] LABS: HEMOGLOBIN A1C 8.3 % (4.0-6.0)
[2021-10-04 16:03] VITALS: BP 153/48
== END 2021-10-04 16:03 | disposition home or self-care (01) ==
LOC: EDH 10:45 → EDHIP 16:31
PROVIDERS: ADMIT Internal Medicine Infectious Disease; ATTEND Internal Medicine Infectious Disease
DX: E11.649 Type 2 diabetes mellitus with hypoglycemia without coma (principal); G93.41 Metabolic encephalopathy; I12.0 Hypertensive chronic kidney disease with stage 5 chronic kidney disease or end stage renal disease; N18.6 End stage renal disease; D63.1 Anemia in chronic kidney disease; E03.9 Hypothyroidism, unspecified; E11.22 Type 2 diabetes mellitus with diabetic chronic kidney disease; E11.51 Type 2 diabetes mellitus with diabetic peripheral angiopathy without gangrene; E66.9 Obesity, unspecified; E78.00 Pure hypercholesterolemia, unspecified; E78.5 Hyperlipidemia, unspecified; I25.10 Atherosclerotic heart disease of native coronary artery without angina pectoris; I95.3 Hypotension of hemodialysis; Z95.0 Presence of cardiac pacemaker; Z95.1 Presence of aortocoronary bypass graft; Z99.2 Dependence on renal dialysis; Z79.899 Other long term (current) drug therapy; Z98.890 Other specified postprocedural states; Z86.16 Personal history of COVID-19
CPT/HCPCS: 36415 ×2; 80048; 80053; 82948 ×12; 83036; 83735; 84484; 85025 ×2; 93005; 96361 ×2; 96372 ×2; 96374; 96375; 99291; G0378 ×23; J1644 ×2; J2405 ×2; J3490 ×2

== ENCOUNTER → 2022-12-12 | Outpatient (CLI) | payer MEDICARE, OTHER | END | disposition home or self-care (01) | LOC: SHCH 13:58 | PROVIDERS: ATTEND Internal Medicine Cardiovascular Disease | DX: I07.1 Rheumatic tricuspid insufficiency (principal); I25.5 Ischemic cardiomyopathy; Z95.0 Presence of cardiac pacemaker | CPT/HCPCS: 93306 ==

== ENCOUNTER → 2022-12-14 | Outpatient (CLI) | payer MEDICARE, OTHER ==
[~2022-12-14] MED LIST changes: +REGADENOSON 0.4 MG/5 ML PF SYG IVP ONE
== END | disposition home or self-care (01) ==
LOC: SHCH 08:52
PROVIDERS: ATTEND Internal Medicine Cardiovascular Disease
DX: I25.5 Ischemic cardiomyopathy (principal)
CPT/HCPCS: 78452; 96374; 93017; J2785; A9500 ×2